=== PATIENT | female | born 1975 | race Caucasian/White ===

== ENCOUNTER → 2017-05-28 | Outpatient (CLI) | payer BC ==
[~2017-05-28] MED LIST: LORTAB 5/500 501 TAB PO; MULTIVITAMIN FO1 CAP PO; PRENATAL VITAMI1 TA5 PO
== END ==
LOC: MC.RAD 09:34
DX: Z12.31 Encounter for screening mammogram for malignant neoplasm of breast (principal); Z90.10 Acquired absence of unspecified breast and nipple

== ENCOUNTER → 2018-09-21 | Outpatient (CLI) | payer BC | LOC: COL.RAD 07:25 | DX: E04.2 Nontoxic multinodular goiter (principal) ==

== ENCOUNTER → 2019-05-31 | Outpatient (CLI) | payer BC | LOC: MC.RAD 14:39 | DX: Z12.31 Encounter for screening mammogram for malignant neoplasm of breast (principal) ==

== ENCOUNTER → 2019-08-24 | Outpatient (CLI) | payer BC | LOC: COL.RAD 11:26 | DX: E04.2 Nontoxic multinodular goiter (principal) ==

== ENCOUNTER → 2020-01-17 | Outpatient (CLI) | payer BC ==
[~2020-01-17] VITALS: Ht 170.2 cm; Wt 105.0 kg
[2020-01-17 13:43] VITALS: BP 149/89; PULSE 78
[2020-01-17 14:35] VITALS: BP 157/89; PULSE 81
== END ==
LOC: COL.RAD 13:30
DX: E04.1 Nontoxic single thyroid nodule (principal)

== ENCOUNTER → 2021-06-05 | Outpatient (CLI) | payer BC | LOC: MC.RAD 14:09 | DX: Z12.31 Encounter for screening mammogram for malignant neoplasm of breast (principal) ==

== ENCOUNTER → 2022-06-20 | Outpatient (CLI) | payer BC | LOC: MC.RAD 08:41 | DX: Z12.31 Encounter for screening mammogram for malignant neoplasm of breast (principal) ==